=== PATIENT | male | born 1960 | race Caucasian/White ===

== ENCOUNTER 2017-01-22 05:49 | Inpatient (IN) | payer MEDICARE, MEDICAID ==
[~2017-01-22] VITALS: Ht 175.3 cm; Wt 141.5 kg
[2017-01-22] MEDS ORDERED: MAGNESIUM HYDROXIDE 30 ML UDC PO PRN (06:30)
[2017-01-22] MEDS ORDERED: MAG HYDROX/AL HYDROX/SIMETH 30 ML UDC PO PRN (06:30)
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
[2017-01-22] MEDS ORDERED: LORAZEPAM INJ 2 MG/ML VIAL IM ONE (07:30)
[2017-01-22] MEDS ORDERED: diphenhydrAMINE HCL 50 MG/ML VIAL IM ONE (07:30)
[2017-01-22] MEDS ORDERED: HALOPERIDOL LACTATE INJ 5 MG/ML VIAL IM ONE (07:30)
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
[2017-01-22 08:00] VITALS: BP 131/85
[2017-01-22] MEDS: SERTRALINE HCL 50 MG TABLET PO SCH (14:02)
[2017-01-22 16:23] VITALS: BP 117/80
[2017-01-22] MEDS: risperiDONE 1 MG TABLET PO SCH (16:39)
--- NOTE | 2017-01-22 16:58 | NUR ---
GPS RN NOTE: PATIENT IN THE ROOM, CALM AT THIS TIME COMPLIANT WITH MEDICATIONS EASILY AGITATED, RESTLESS AT TIMES .PT REFUSED LABS AND SKIN ASSESSMENT THIS SHIFT, WILL CONTINUE MONITORING FOR SAFETY AND BEHAVIOR Q 15 MIN
--- NOTE | 2017-01-22 19:00 | NUR ---
GPS/RN NOTE: PATIENT SLEEPING WHEN RECEIVED DURING INITIAL ROUNDING, RESPIRATION EVEN, BREATHING PATTERN NON-LABORED, NO ACUTE DISTRESS NOTED. WILL CONTINUE TO MONITOR Q 15 MINS. TO MAINTAIN SAFETY.
[2017-01-22 19:48] VITALS: BP 112/59
[2017-01-22] MEDS ORDERED: TEMAZEPAM 7.5 MG CAPSULE PO PRN (22:00)
--- NOTE | 2017-01-23 07:03 | NUR ---
GPS/RN NOTE: PATIENT UP TO THE NURSE'S STATION JUST WATCHING THEN PROCEEDED TO THE DINING AREA. CALM, AND QUIET. NO APPARENT DISTRESS NOTED.
[2017-01-23] MEDS: SERTRALINE HCL 50 MG TABLET PO SCH (08:12)
[2017-01-23] MEDS: risperiDONE 1 MG TABLET PO SCH ×2 (08:12→19:18)
[2017-01-23] MEDS: clonazePAM 0.5 MG TABLET PO PRN ×2 (08:13→13:53)
--- NOTE | 2017-01-23 08:13 | NUR ---
ADMINISTERED KLONOPIN 0.5 MG PO PRN FOR ANXIETY, PARANOIA, V/S REFUSED. CONTINUED MONITORING.
[2017-01-23] MEDS: ACETAMINOPHEN 325 MG TABLET PO PRN (13:53)
--- NOTE | 2017-01-23 13:53 | NUR ---
PT VERY ANXIOUS, IRRITABLE, ALSO COMPLAINING OF CHEST PAIN, ADMINISTERED KLONOPIN 0.5 MG/PO PRN, AND TYLENOL 650 MG PO PRN, MEDICAL MD AWARE AND ORDERED EKG STAT, AND TROPONIN STAT, ORDER TAKEN, AND CARRIED OUT.
--- NOTE | 2017-01-23 13:55 | NUR ---
V/S TAKEN BP-103/65, P-79, R-19, O2-93 ROOM AIR. PATIENT LYING IN THE BED HOB ELEVATED, CONTINUED MONITORING.
[2017-01-23 14:51] LABS: BASOPHILS % (AUTO) 0.5 % (0.0-2.0); EOSINOPHILS # (AUTO) 0.4 /CMM (0.0-0.7); EOSINOPHILS % (AUTO) 6.5 % (0.0-6.0); HEMATOCRIT 40 % (39-51); HEMOGLOBIN 13.3 g/dL (13.5-17.5); LYMPHOCYTES % (AUTO) 32.2 % (20.0-44.0); MEAN CORPUSCULAR HEMOGLOBIN 30 PG (26.0-33.0); MEAN CORPUSCULAR HGB CONC 33 g/dl (31.0-36.0); MEAN CORPUSCULAR VOLUME 89 fL (80-96); MONOCYTES # (AUTO) 0.5 /CMM (0.1-1.30); MONOCYTES % (AUTO) 7.6 % (2.0-12.0); NEUTROPHILS # (AUTO) 3.3 /CMM (1.8-8.9); NEUTROPHILS % (AUTO) 53.2 % (43.0-81.0); PLATELET COUNT (AUTO) 190 /CMM (150-450); RDW COEFFICIENT OF VARIATION 16.4 (11.5-15.0); RED BLOOD CELL COUNT(AUTO) 4.47 MIL/uL (4.5-6.0); WHITE BLOOD COUNT (AUTO) 6.2 K/uL (4.3-11.0)
[2017-01-23 15:07] LABS: ALBUMIN 3.1 g/dL (3.4-5.0); BILIRUBIN,TOTAL 0.3 mg/dL (0.2-1.0); CALCIUM, SERUM 8.7 mg/dL (8.5-10.1); CREATININE 0.9 mg/dL (0.6-1.3); MAGNESIUM 1.6 mg/dL (1.8-2.4); PHOSPHORUS 3.7 mg/dL (2.5-4.9); POTASSIUM 3.9 mmol/L (3.5-5.1); TOTAL PROTEIN, SERUM 6.6 g/dL (6.4-8.2)
[2017-01-23] MEDS: ASPIRIN 81 MG TAB.CHEW PO SCH (15:07)
[2017-01-23 15:39] LABS: THYROID STIMULATING HORMONE 1.373 uIU/mL (0.358-3.74)
[2017-01-23 16:00] VITALS: BP 112/57
[2017-01-23 19:55] VITALS: BP 90/57
[2017-01-24] MEDS: clonazePAM 0.5 MG TABLET PO PRN (08:01)
[2017-01-24] MEDS: risperiDONE 1 MG TABLET PO SCH ×2 (08:01→16:51)
[2017-01-24] MEDS: SERTRALINE HCL 50 MG TABLET PO SCH (08:02)
[2017-01-24] MEDS: ASPIRIN 81 MG TAB.CHEW PO SCH (08:02)
--- NOTE | 2017-01-24 08:02 | NUR ---
ADMINISTERED KLONOPIN 0.5 MG PO PRN FOR ANXIETY, YELLING, IRRITABLE, PARANOIA, V/S TAKEN, BP- 123/78,P-78. CONTINUED MONITORING.
[2017-01-24] MEDS: clonazePAM 1 MG TABLET PO PRN (09:37)
--- NOTE | 2017-01-24 09:38 | NUR ---
ADMINISTERED KLONOPIN 1 MG PO PRN FOR AGITATION, PARANOIA, THROWING SELF TO THE FLOOR.V/S TAKE BP-124/76, P-76, CONTINUED MONITORING.
[2017-01-24] MEDS: BENZTROPINE MESYLATE (1 MG) 1 MG TABLET PO SCH ×2 (12:44→16:50)
[2017-01-24] MEDS ORDERED: SERTRALINE HCL 50 MG TABLET PO ONE (13:30)
[2017-01-24] MEDS ORDERED: risperiDONE 1 MG TABLET PO ONE (13:30)
[2017-01-24 16:00] VITALS: BP 123/59
--- NOTE | 2017-01-24 16:18 | NUR ---
Initial Discharge Plan: Patient is homeless and was living in the [facility]. Patient will need placement. SW will follow-up with MD and patient regarding most appropriate discharge and will help form a safe and proper discharge.
[2017-01-24] MEDS ORDERED: SPIR25TA PO (16:51)
[2017-01-24] MEDS ORDERED: TORS20TA3 PO (16:51)
[2017-01-24] MEDS ORDERED: METO2.5T2 PO (16:51)
[2017-01-24] MEDS ORDERED: RIVA10TA PO (16:51)
[2017-01-24] MEDS ORDERED: POTA20TA83 PO (16:51)
[2017-01-24] MEDS ORDERED: ALBU8.5H2 INH (16:51)
[2017-01-24] MEDS ORDERED: ALBUTEROL SULFATE 8 GM HFA.AER.AD IH PRN (17:30)
--- NOTE | 2017-01-24 19:45 | NUR ---
GPS/RN NOTE: PATIENT WENT TO THE DINING AREA AND BACK TO HIS BED. WILL CONTINUE MONITORING FOR SAFETY.
[2017-01-24 20:01] VITALS: BP 119/80
[2017-01-25 08:00] VITALS: BP 129/87
[2017-01-25] MEDS: ASPIRIN 81 MG TAB.CHEW PO SCH (08:00)
[2017-01-25] MEDS: risperiDONE 1 MG TABLET PO SCH ×2 (08:01→16:50)
[2017-01-25] MEDS: RIVAROXABAN 10 MG TABLET PO SCH (08:04)
[2017-01-25] MEDS: BENZTROPINE MESYLATE (1 MG) 1 MG TABLET PO SCH ×2 (08:05→16:50)
[2017-01-25] MEDS ORDERED: SERTRALINE HCL 50 MG TABLET PO SCH (09:00)
--- NOTE | 2017-01-25 09:04 | NUR ---
Reviewed psychosocial done by Rosibel Chacon. Addendum: 01/25/17 at 0905 by ARTI BROTHERS Amended: Links added.
[2017-01-25] MEDS: clonazePAM 1 MG TABLET PO PRN (09:34)
[2017-01-25 16:00] VITALS: BP 111/69
--- NOTE | 2017-01-25 20:31 | NUR ---
RN NOTES: PT IN THE ROOM, A/O X2, ON ROOM AIR, RESPIRATION EVEN AND UNLABORED, DENIES ANY PAIN OR DISCOMFORT, PT IS DISHEVELED, DISORGANIZED AND MALODOROUS. PT REFUSING SHOWERS AND LINEN CHANGE. HAS LIMITED JUDGMENT AND POOR CONCENTRATION, REFUSING EDUCATION, IMPULSIVE AND UNCOOPERATIVE, HOWEVER PT HAS GOOD APPETITE. PT EASILY GETS ANXIOUS AND IRRITABLE. PT KEPT ASKING REGARDING HIS COURT HEARING, INFORMED IT WILL BE TOMORROW BUT CANT TELL SPECIFIC TIME, PT UNDERSTAND. SAFETY PRECAUTIONS FOR FALL INITIATED, WILL CONTINUE MONITORING [id number] FOR SAFETY AND BEHAVIOR.
[2017-01-25 20:35] VITALS: BP 118/64
--- NOTE | 2017-01-25 22:00 | NUR ---
RN NOTES: PT REFUSING BLOOD SUGAR CHECK, EDUCATION PROVIDED TO THE PT, MD AWARE
[2017-01-26 08:00] VITALS: BP 121/71
[2017-01-26] MEDS: ASPIRIN 81 MG TAB.CHEW PO SCH (08:29)
[2017-01-26] MEDS: risperiDONE 1 MG TABLET PO SCH ×2 (08:30→16:57)
[2017-01-26] MEDS: RIVAROXABAN 10 MG TABLET PO SCH (08:30)
[2017-01-26] MEDS: BENZTROPINE MESYLATE (1 MG) 1 MG TABLET PO SCH ×2 (08:30→16:57)
[2017-01-26] MEDS ORDERED: DEXTROSE 50%-WATER 50 ML DISP.SYRIN IV PRN (11:00)
[2017-01-26] MEDS: INSULIN REGULAR, HUMAN 100 UNIT/ML 3 ML VIAL SQ PRN (13:17)
[2017-01-26] MEDS: BLOOD SUGAR DIAGNOSTIC 1 EACH STRIP IN SCH ×3 (13:19→22:11)
--- NOTE | 2017-01-26 15:35 | NUR ---
RN-CO: DR AGUSTIN GAVE AN ORDER OF NICOTINE PATCH 14 MG TD, NOTED.
[2017-01-26 16:00] VITALS: BP 104/65
[2017-01-26 20:00] VITALS: BP 135/57
[2017-01-27 08:00] VITALS: BP 102/62
[2017-01-27] MEDS: BLOOD SUGAR DIAGNOSTIC 1 EACH STRIP IN SCH ×4 (08:10→21:37)
[2017-01-27] MEDS: BENZTROPINE MESYLATE (1 MG) 1 MG TABLET PO SCH ×2 (08:11→16:14)
[2017-01-27] MEDS: risperiDONE 1 MG TABLET PO SCH ×2 (08:11→16:14)
[2017-01-27] MEDS: ASPIRIN 81 MG TAB.CHEW PO SCH (08:11)
[2017-01-27] MEDS: RIVAROXABAN 10 MG TABLET PO SCH (08:12)
[2017-01-27] MEDS: NICOTINE PATCH (14MG) 14 MG PATCH.TD24 TD SCH (08:14)
[2017-01-27] MEDS: clonazePAM 1 MG TABLET PO PRN (14:07)
--- NOTE | 2017-01-27 14:09 | NUR ---
GPS RN: KLONOPIN 1MG ADMINISTERED PO FOR C/O ANXIETY, RELATED TO DISCHARGE PLANNING.
--- NOTE | 2017-01-27 14:24 | NUR ---
GPS RN: LEFT A VOICEMAIL TO DR. HAY REGARDING THE ECG RESULTS.
--- NOTE | 2017-01-27 15:02 | NUR ---
GPS RN: PATIENT IS CLAIMING THAT HE HAS HIV. DR. AGUSTIN NOTIFIED, ALSO RELAYED THE RESULTS OF THE ECG. NEW ORDERS RECEIVED AND CARRIED OUT.
[2017-01-27 16:00] VITALS: BP 132/71
--- NOTE | 2017-01-27 16:08 | NUR ---
GPS RN: SPOKE WITH DR. HAY AND RELAYED THE ECG RESULTS. NO NEW ORDERS RECEIVED.
--- NOTE | 2017-01-27 16:09 | NUR ---
GPS RN:SPOKE WITH DR. SPENCER, HE WILL SEE THE PATIENT TOMORROW.
[2017-01-27 20:00] VITALS: BP 99/47
[2017-01-27] MEDS: INSULIN REGULAR, HUMAN 100 UNIT/ML 3 ML VIAL SQ PRN (21:37)
[2017-01-28] MEDS: ALBUTEROL FS 2.5 MG/3 ML VIAL.NEB NEB PRN ×2 (04:27→11:10)
[2017-01-28] MEDS: clonazePAM 1 MG TABLET PO PRN ×2 (06:57→15:15)
[2017-01-28] MEDS: BLOOD SUGAR DIAGNOSTIC 1 EACH STRIP IN SCH ×4 (07:48→22:00)
[2017-01-28] MEDS: ACETAMINOPHEN 325 MG TABLET PO PRN ×2 (07:56→14:02)
[2017-01-28 08:00] VITALS: BP 89/57
--- NOTE | 2017-01-28 08:00 | NUR ---
GPS RN: PATIENT C/O BODY ACHING AND IS ASKING FOR TYLENOL. ADMINISTERED TYLENOL 650MG PO ORDERED. CONTINUE TO MONITOR.
[2017-01-28] MEDS: ASPIRIN 81 MG TAB.CHEW PO SCH (08:02)
[2017-01-28] MEDS: RIVAROXABAN 10 MG TABLET PO SCH (08:03)
[2017-01-28] MEDS: BENZTROPINE MESYLATE (1 MG) 1 MG TABLET PO SCH ×2 (08:03→17:46)
[2017-01-28] MEDS: risperiDONE 1 MG TABLET PO SCH ×2 (08:10→17:46)
[2017-01-28] MEDS: NICOTINE PATCH (14MG) 14 MG PATCH.TD24 TD SCH (08:10)
--- NOTE | 2017-01-28 08:16 | NUR ---
GPS RN: HELD RISPERDAL DUE TO LOW BP 89/57. PATIENT IS NOT IN ANY APPARENT DISTRESS AT THIS TIME. CONTINUE TO MONITOR
[2017-01-28] MEDS ORDERED: risperiDONE 1 MG TABLET PO ONE (13:00)
--- NOTE | 2017-01-28 14:03 | NUR ---
GPS RN: PATIENT C/O BODY ACHING AND IS ASKING FOR TYLENOL. ADMINISTERED TYLENOL 650MG PO ORDERED. CONTINUE TO MONITOR.
--- NOTE | 2017-01-28 15:15 | NUR ---
GPS RN: KLONOPIN 1MG ADMINISTERED PO FOR C/O ANXIETY, VS WNL, CONTINUE TO MONITOR.
[2017-01-28 16:00] VITALS: BP 109/74
[2017-01-28] MEDS ORDERED: risperiDONE 1 MG TABLET PO SCH (17:00)
[2017-01-28 20:00] VITALS: BP 106/69
[2017-01-29 07:09] LABS: *BASOS 0 % (.); *EOS 4 % (.); *EOS, ABSOLUTE 0.4 x10E3/uL (0.0-0.4); *HCT 42.6 % (37.5-51.0); *HGB 14.3 g/dL (12.6-17.7); *IMMATURE GRANULOCYTES 0 % (.); *LYMPHOCYTES 34 % (.); *LYMPHS, ABSOLUTE 3.1 x10E3/uL (0.7-3.1); *MCH 30.2 pg (26.6-33.0); *MCHC 33.6 g/dL (31.5-35.7); *MCV 90 fL (79-97); *MONOCYTES 8 % (.); *MONOS, ABSOLUTE 0.8 x10E3/uL (0.1-0.9); *NEUTROPHILS 54 % (.); *NEUTROPHILS, ABSOLUTE 4.7 x10E3/uL (1.4-7.0); *PLT 172 x10E3/uL (150-379); *RBC 4.74 x10E6/uL (4.14-5.80); *RDW 16.4 % (12.3-15.4)
[2017-01-29] MEDS: BLOOD SUGAR DIAGNOSTIC 1 EACH STRIP IN SCH ×4 (07:55→21:15)
[2017-01-29] MEDS: risperiDONE 1 MG TABLET PO SCH ×3 (07:55→19:02)
[2017-01-29] MEDS: NICOTINE PATCH (14MG) 14 MG PATCH.TD24 TD SCH (07:55)
[2017-01-29] MEDS: BENZTROPINE MESYLATE (1 MG) 1 MG TABLET PO SCH ×2 (07:56→19:01)
[2017-01-29] MEDS: RIVAROXABAN 10 MG TABLET PO SCH (07:57)
[2017-01-29] MEDS: INSULIN REGULAR, HUMAN 100 UNIT/ML 3 ML VIAL SQ PRN (07:58)
[2017-01-29 08:00] VITALS: BP 88/52
[2017-01-29 08:58] VITALS: BP 101/67
[2017-01-29] MEDS: clonazePAM 1 MG TABLET PO PRN (08:58)
--- NOTE | 2017-01-29 08:58 | NUR ---
administered klonopin 0.5 mg po prn for anxiety, irritable, v/s taken bp-101/67, p-70, continued monitoring. Addendum: 01/29/17 at 0902 by WON TUTTLE LVN above note mentioned Klonopin dose is a 1 mg not 0.5 mg, continued monitoring.
[2017-01-29] MEDS: ALBUTEROL FS 2.5 MG/3 ML VIAL.NEB NEB PRN (15:01)
[2017-01-29 15:44] VITALS: BP 101/64
[2017-01-29 16:50] LABS: ALBUMIN 3.4 g/dL (3.4-5.0); BILIRUBIN,TOTAL 0.2 mg/dL (0.2-1.0); CALCIUM, SERUM 9.1 mg/dL (8.5-10.1); CREATININE 1.1 mg/dL (0.6-1.3); POTASSIUM 3.4 mmol/L (3.5-5.1); TOTAL PROTEIN, SERUM 3.8 g/dL (6.4-8.2)
[2017-01-29 19:52] VITALS: BP 100/66
[2017-01-30] MEDS: BLOOD SUGAR DIAGNOSTIC 1 EACH STRIP IN SCH ×2 (07:35→12:00)
[2017-01-30 08:00] VITALS: BP 127/84
[2017-01-30] MEDS: risperiDONE 1 MG TABLET PO SCH ×2 (08:09→12:25)
[2017-01-30] MEDS: BENZTROPINE MESYLATE (1 MG) 1 MG TABLET PO SCH (08:09)
[2017-01-30] MEDS: RIVAROXABAN 10 MG TABLET PO SCH (08:09)
[2017-01-30] MEDS: NICOTINE PATCH (14MG) 14 MG PATCH.TD24 TD SCH (08:09)
[2017-01-30] MEDS: INSULIN REGULAR, HUMAN 100 UNIT/ML 3 ML VIAL SQ PRN (08:10)
[2017-01-30] MEDS: clonazePAM 1 MG TABLET PO PRN (08:13)
--- NOTE | 2017-01-30 08:13 | NUR ---
administered klonopin 1 mg po prn for anxiety, v/s taken bp-121/84, p-75, continued monitoring.
[2017-01-30 08:56] LABS: BASOPHILS % (AUTO) 0.6 % (0.0-2.0); EOSINOPHILS # (AUTO) 0.5 /CMM (0.0-0.7); EOSINOPHILS % (AUTO) 6.4 % (0.0-6.0); HEMATOCRIT 42 % (39-51); HEMOGLOBIN 13.9 g/dL (13.5-17.5); LYMPHOCYTES # (AUTO) 2.5 /CMM (0.8-4.8); LYMPHOCYTES % (AUTO) 34.2 % (20.0-44.0); MEAN CORPUSCULAR HEMOGLOBIN 30 PG (26.0-33.0); MEAN CORPUSCULAR HGB CONC 33 g/dl (31.0-36.0); MEAN CORPUSCULAR VOLUME 89 fL (80-96); MONOCYTES # (AUTO) 0.5 /CMM (0.1-1.30); MONOCYTES % (AUTO) 7.3 % (2.0-12.0); NEUTROPHILS # (AUTO) 3.8 /CMM (1.8-8.9); NEUTROPHILS % (AUTO) 51.5 % (43.0-81.0); PLATELET COUNT (AUTO) 167 /CMM (150-450); RDW COEFFICIENT OF VARIATION 16.3 (11.5-15.0); RED BLOOD CELL COUNT(AUTO) 4.73 MIL/uL (4.5-6.0); WHITE BLOOD COUNT (AUTO) 7.4 K/uL (4.3-11.0)
--- NOTE | 2017-01-30 09:29 | NUR ---
Patient was offered placement options (nursing facilities, Board & Care facilities) but patient requested to go to the [facility] [address], [place] [address]. . Patient will be returning upon discharge.
--- NOTE | 2017-01-30 13:40 | NUR ---
DISCHARGE NOTES/ PATIENT DISCHARGE AT [facility] TIME GOING [facility]. PT A/O X3, MED COMPLIANT, V/S STABLE, NO C/O PAIN. PATIENT DENIED SI/HI/AVH AT TIS TIME. MED RECONCILIATION AND DISCHARGE ORDER REVIEWED AND EXPLAINED TO PATIENT. PATIENT VERBALIZED UNDERSTANDING. BELONGING RETURNED BACK TO THE PATIENT. 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
--- NOTE | 2017-01-30 16:31 | NUR ---
Discharge Note: Patient was discharged to [facility] [address] [place] [address]. . Via [facility]. Patient was agreeable with the discharge plan and left with no apparent distress. Patient's mood and affect were appropriate. Patient denied suicidal and homicidal ideations upon discharge. Cycle Touring Guide provided patient with referrals to [place] [facility] . Cycle Touring Guide provided patient with information regarding the men's recovery program offered by the [facility] for substance abuse disorders. Patient agreed to follow-up. Facilitated info to IDT team who are in agreement with discharge arrangement. The multidisciplinary exitcare form was done, printed, signed, and given to the patient.
[2017-01-30] MEDS ORDERED: WARFARIN SODIUM 5 MG TABLET PO SCH (17:00)
[2017-01-31 02:24] LABS: *% CD 4 POS. LYMPH 32.9 % (30.8-58.5); *% CD 8 POS. LYMPH 39.2 % (12.0-35.5); *ABSOLUTE CD 4 HELPER 1020 /uL (359-1519); *ABSOLUTE CD 8 SUPPRESSOR 1215 /uL (109-897); *CD4/CD8 RATIO 0.84 (0.92-3.72)
[2017-02-01 16:18] LABS: *HIV-1 RNA BY PCR <40 copies/mL (.)
== END 2017-01-30 14:40 | disposition home or self-care (01) | DRG 885 ==
LOC: GPS 05:49
PROVIDERS: ADMIT Psychiatry & Neurology Psychiatry
DX: F33.3 Major depressive disorder, recurrent, severe with psychotic symptoms (principal); E11.9 Type 2 diabetes mellitus without complications; E66.01 Morbid (severe) obesity due to excess calories; Z59.0 Homelessness; F15.90 Other stimulant use, unspecified, uncomplicated; Z72.0 Tobacco use; Z91.19 Patient's noncompliance with other medical treatment and regimen; F17.210 Nicotine dependence, cigarettes, uncomplicated; I44.30 Unspecified atrioventricular block; Z95.2 Presence of prosthetic heart valve; F29 Unspecified psychosis not due to a substance or known physiological condition
CPT/HCPCS: 36415; 71010-TC; 80053-TC; 80061-TC; 82962-TC; 83735-TC; 84100-TC; 84443-TC; 84484-TC; 85025-TC; 86360; 87536; 93307-TC; J1200; J1630; J1815; J2060